=== PATIENT | male | born 1960 ===

== ENCOUNTER 2020-11-19 13:18 | Outpatient (REF) | payer MEDICAID, SELFPAY ==
--- NOTE | ~2020-11-19 | US_ITS ---
EXAMINATION: US VENOUS ULTRASOUND WITH DOPPLER LOWER EXTREMITY, LEFT CLINICAL INFORMATION: Edema and redness COMPARISON: Previous exam September 2016 TECHNIQUE: Ultrasound of the deep veins is performed from the hip to the calf with compression sonography and color and pulse Doppler assessment. Spectral analysis with color-flow imaging is performed. FINDINGS: There is normal venous compression and respiratory variation and augmented flow. The visualized common femoral vein, superficial femoral vein, profunda femoral vein, popliteal vein, and the trifurcation region shows no evidence of deep venous thrombosis. There is no significant popliteal fossa cyst. US/US venous duplex LE LT IMPRESSION: No DVT demonstrated in the left lower extremity.
== END 2020-11-19 13:19 | disposition home or self-care (01) ==
LOC: HO.US 13:18
PROVIDERS: PCP Family Medicine; Visit Provider Emergency Medicine
DX: R60.0 Localized edema (principal)
CPT/HCPCS: 93971

== ENCOUNTER 2021-04-23 10:55 | Outpatient (REF) | payer MEDICAID, SELFPAY ==
--- NOTE | ~2021-04-23 | US_ITS ---
EXAMINATION: US VENOUS ULTRASOUND WITH DOPPLER LOWER EXTREMITY, RIGHT CLINICAL INFORMATION: Right leg pain. COMPARISON: None TECHNIQUE: Ultrasound of the deep veins is performed from the hip to the calf with compression sonography and color and pulse Doppler assessment. Spectral analysis with color-flow imaging is performed. FINDINGS: There is normal venous compression and respiratory variation and augmented flow. The visualized common femoral vein, superficial femoral vein, profunda femoral vein, popliteal vein, and the posterior tibial vein shows no evidence of deep venous thrombosis. The peroneal vein is not visualized. There is no significant popliteal fossa cyst. US/US venous duplex LE RT IMPRESSION: No DVT demonstrated in the right lower extremity. The peroneal vein in the calf is not visualized.
== END 2021-04-23 10:56 | disposition home or self-care (01) ==
LOC: HO.US 10:55
PROVIDERS: Visit Provider Internal Medicine
DX: M79.604 Pain in right leg (principal); M79.89 Other specified soft tissue disorders
CPT/HCPCS: 93971

== ENCOUNTER 2022-07-29 15:32 | Emergency (ER) | payer MEDICAID, SELFPAY ==
[2022-07-29 15:48] VITALS: BP 101/50; PULSE 88; RESP 20; TEMP 36.7; O2SAT 95; BMI 35.7
[2022-07-29 16:08] LABS: MANUAL DIFF FLAG NO
[2022-07-29 16:12] LABS: Basophils Percent Auto 0.6 % (0-2); Eosinophils Absolute Auto 0.2 X10*3/uL (0.0-0.4); Eosinophils Percent Auto 2.4 % (0-4); Hematocrit 33.9 % (42.0-52.0); Hemoglobin 10.6 g/dl (14.0-18.0); Imm Gran Abs Auto 0.01 X10*3/uL (0.00-0.03); Imm Gran Pct Auto 0.1 % (0.0-0.4); Lymphocytes Absolute Auto 1.8 X10*3/uL (1.2-4.9); Lymphocytes Percent Auto 25.5 % (20-40); Mean Corpuscular HGB Conc 31.3 g/dl (31.0-36.0); Mean Corpuscular Hemoglobin 26.5 pg (27.0-33.0); Mean Corpuscular Volume 84.8 fL (80.0-98.0); Mean Platelet Volume 8.8 fL (9.4-12.4); Monocytes Absolute Auto 0.7 X10*3/uL (0.1-1.2); Monocytes Percent Auto 9.3 % (2-11); Neutrophils Absolute Auto 4.3 x10*3/uL (2.0-8.3); Neutrophils Percent Auto 62.1 % (45-73); Platelet Count 238 X10*3/uL (160-400); Red Cell Distribution Width 14.5 % (11.0-16.0)
[2022-07-29 16:25] LABS: Anion Gap 10 (12-20); Blood Urea Nitrogen 15 mg/dL (9-16); Calcium 9.2 mg/dL (8.4-10.2); Chloride 105 mmol/L (96-108); Creatinine Clr Calc Pharmacy 105.1; Estimated Glomerular Filt Rate > 60; Glucose Random 125 mg/dL (60-115); Potassium 3.7 mmol/L (3.3-5.1); Sodium 142 mmol/L (135-145)
[2022-07-29 16:29] LABS: Carbon Dioxide 31 mmol/L (22-29)
--- OUTSIDE RECORDS SUMMARY | 2022-07-29 21:11 | XMS_ITS | Continuity of Care Document ---
:1960 Demographics Address [address] [place] [address] Preferred Language es Marital Status Taoism Affiliation Buddhist Race Unknown Ethnic Group or
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
[2022-07-29] MEDS: traMADoL HCL 50 MG TABLET PO (22:16)
--- NOTE | 2022-07-29 22:22 | ED.EXTPRO ---
HPI - Extremity Problem General Chief complaint: Extremity Problem Stated complaint: left hip pain and foot swelling Time Seen by Provider: 07/29/22 21:19 Source: patient Mode of arrival: ambulatory Limitations: no limitations History of Present Illness HPI Narrative: Patient complaining of bilateral hip pain back pain after fall couple of months ago does have severe arthritis use crutches asking for pain medication no shortness of breath no chest pain Related Data Previous Rx's Medication Instructions Recorded tramadol 50 mg tablet 50 mg PO Q6H PRN pain #20 tabs 07/29/22 Allergies Allergy/AdvReac Type Severity Reaction Status Date / Time No Known Allergies Allergy Mild NA Unverified 04/24/20 16:13 Review of Systems Review of Systems: Yes all other systems are reviewed and are negative [facility] Social History Social History Advance Directives: No Advance Directives Information Provided: Yes Physical Exam Vital Signs: Vital Signs: Last Vital Signs Temp 98.0 F 07/29/22 15:48 Pulse 88 07/29/22 15:48 Resp 20 07/29/22 15:48 BP 101/50 L 07/29/22 15:48 Pulse Ox 95 07/29/22 15:48 O2 Del Method 07/29/22 15:48 BMI result Body Mass Index 35.7 Appearance: Alert. Oriented X3. No acute distress. Eyes: PERRLA, No Nystagmus ENT: Pharynx normal. Oral Mucosa moist Neck: Normal inspection. Neck supple. CVS: Normal heart rate and rhythm. Pulses normal. Respiratory: No respiratory distress. Equal air entry bilateral, no wheezing/rales/rhonchi Abdomen: Soft and nontender. Bowel sounds are present, no mass palpable, no CVA tenderness Skin: Skin warm and dry. Normal skin color. Normal skin turgor. Extremities: No lower extremity edema. No calf tenderness patient able to ambulate with crutches back: Diffuse lower spine tenderness Neuro: Oriented X 3. No motor deficit. No sensory deficit.No cerebellar signs , cranial nerves II-XII intact Medications Administered Discontinued Medications Generic Name Dose Route Start Last Admin Trade Name Freq PRN Reason Stop Dose Admin Tramadol HCl 50 mg 07/29/22 21:51 07/29/22 22:16 Tramadol Hcl 50 Mg Tablet PO 07/29/22 21:52 50 mg ONCE ONE Administration Medical Decision Making Medical Decision Making [facility] Narrative: Patient with severe arthritis chronic pain x-ray shows bone to bone bilateral hips will give him tramadol advised to follow with PCP Lab Data Result Diagrams: 07/29/22 16:03 07/29/22 16:03 Labs: Lab Results 07/29/22 07/29/22 Range/Units 16:03 16:03 WBC 7.0 (4.8-10.8) X10*3/uL RBC 4.00 L (4.60-5.80) X10*6/uL Hgb 10.6 L (14.0-18.0) g/dl Hct 33.9 L (42.0-52.0) % MCV 84.8 (80.0-98.0) fL MCH 26.5 L (27.0-33.0) pg MCHC 31.3 (31.0-36.0) g/dl RDW 14.5 (11.0-16.0) % Plt Count 238 (160-400) X10*3/uL MPV 8.8 L (9.4-12.4) fL Immature Gran % (Auto) 0.1 (0.0-0.4) % Neut % (Auto) 62.1 (45-73) % Lymph % (Auto) 25.5 (20-40) % Davis % (Auto) 9.3 (2-11) % Eos % (Auto) 2.4 (0-4) % Baso % (Auto) 0.6 (0-2) % Lymph # (Auto) 1.8 (1.2-4.9) X10*3/uL Davis # (Auto) 0.7 (0.1-1.2) X10*3/uL Eos # (Auto) 0.2 (0.0-0.4) X10*3/uL Baso # (Auto) 0.0 (0.0-0.2) X10*3/uL Abs Immat Gran (auto) 0.01 (0.00-0.03) X10*3/uL Absolute Neuts (auto) 4.3 (2.0-8.3) x10*3/uL Absolute Nucleated RBC 0.000 (0.0-0.012) X10*3/uL Nucleated RBC % (auto) 0.0 (0.0-0.2) /100WBC Sodium 142 (135-145) mmol/L Potassium 3.7 (3.3-5.1) mmol/L Chloride 105 (96-108) mmol/L Carbon Dioxide 31 H (22-29) mmol/L Anion Gap 10 L (12-20) BUN 15 (9-16) mg/dL Creatinine 0.72 (0.5-1.4) mg/dL Estim Creat Clear Calc 105.1 Estimated GFR > 60 Random Glucose 125 H (60-115) mg/dL Calcium 9.2 (8.4-10.2) mg/dL Discharge Plan Discharge Clinical Impression: Arthritis of hip Patient Disposition: Home, Self-Care Instructions: Osteoarthritis (ED) Additional Instructions: Take pain medication as prescribed Follow-up with your orthopedic/PCP Prescriptions: New tramadol 50 mg tablet 50 mg PO Q6H PRN (Reason: pain) Qty: 20 0RF
== END 2022-07-29 22:53 | disposition home or self-care (01) ==
PROVIDERS: Emergency Provider Internal Medicine
DX: M16.12 Unilateral primary osteoarthritis, left hip (principal); M25.552 Pain in left hip
CPT/HCPCS: 36415; 73502; 80048; 85025; 99283

== ENCOUNTER 2022-12-21 15:04 | Outpatient (REF) | payer MEDICAID, SELFPAY ==
--- NOTE | ~2022-12-21 | XR_ITS ---
EXAMINATION: XR LUMBOSACRAL SPINE CLINICAL INFORMATION: Back pain. Fall approximately 2 weeks ago. COMPARISON: Pelvis and left hip radiographs 07/29/2022. TECHNIQUE: Three views of the lumbosacral spine. FINDINGS: There is question of transitional vertebrae at L5. The vertebral bodies are within normal height and there is no focal vertebral compression or destructive process. There are multilevel degenerative disc changes lower thoracic and lumbar spine. There is disc narrowing at multiple levels with endplate sclerosis and vertebral spurring. There is no visible destructive process or paraspinal soft tissue swelling. A grade 1-2 spondylolisthesis is present at L5-S1. The SI joints and visualized sacrum are unremarkable. XR/XR lumbar spine 2-3V IMPRESSION: -Grade 1-2 spondylolisthesis L5-S1. -Multilevel degenerative disc changes lower thoracic and lumbar spine. -No focal lumbar vertebral compression or destructive process. -Question transitional vertebrae at L5 with partial sacralization versus projectional from the spondylolisthesis.
== END 2022-12-21 15:05 | disposition home or self-care (01) ==
LOC: HO.HHCX 15:04
PROVIDERS: Visit Provider Family Medicine
DX: M54.50 Low back pain, unspecified (principal)
CPT/HCPCS: 72100

== ENCOUNTER 2023-01-10 13:08 | Emergency (ER) | payer MEDICAID, SELFPAY ==
--- NOTE | ~2023-01-10 | US_ITS ---
EXAMINATION: US VENOUS ULTRASOUND WITH DOPPLER LOWER EXTREMITY, LEFT CLINICAL INFORMATION: Swelling COMPARISON: 11/19/2020 TECHNIQUE: Ultrasound of the deep veins is performed from the hip to the calf with compression sonography and color and pulse Doppler assessment. Spectral analysis with color-flow imaging is performed. FINDINGS: There is normal venous compression and respiratory variation and augmented flow. The visualized common femoral vein, superficial femoral vein, profunda femoral vein, popliteal vein, and the trifurcation region shows no evidence of deep venous thrombosis. There is no significant popliteal fossa cyst. There is left groin reactive appearing lymphadenopathy with mostly fatty replaced lymph nodes measures 3.2 x 0.8 x 2.3 cm. If the patient's symptoms persist, followup ultrasound in 5 days 7 days might be of value to exclude proximal propagation from a non-visualized calf vein. US/US venous duplex LE LT IMPRESSION: No DVT demonstrated in the le left lower extremity. Left inguinal lymphadenopathy.
[2023-01-10 13:40] VITALS: BP 135/76; PULSE 71; RESP 16; TEMP 36; O2SAT 97; BMI 35.1
--- NOTE | 2023-01-10 13:59 | ED.EXTPRO ---
HPI - Extremity Problem General Chief complaint: Extremity Problem Stated complaint: l leg redness Related Data Previous Rx's Medication Instructions Recorded tramadol 50 mg tablet 50 mg PO Q6H PRN pain #20 tabs 07/29/22 Allergies Allergy/AdvReac Type Severity Reaction Status Date / Time No Known Allergies Allergy Mild NA Unverified 04/24/20 16:13 Physical Exam Vital Signs: Vital Signs: Last Vital Signs Temp 96.8 F 01/10/23 13:40 Pulse 71 01/10/23 13:40 Resp 16 01/10/23 13:40 BP 135/76 01/10/23 13:40 Pulse Ox 97 01/10/23 13:40 O2 Del Method Aerosol Mask 01/10/23 13:40 BMI result Body Mass Index 35.1 Course Course Course Narrative: Patient complains of left lower extremity pain and swelling, no shortness of breath no chest pain Ultrasound ordered, labs ordered This is rapid exam in triage, full history exam evaluation and dispo will be done in the department Discharge Plan Discharge Prescriptions: No Action tramadol 50 mg tablet 50 mg PO Q6H PRN (Reason: pain) Qty: 20 0RF
[2023-01-10 16:20] VITALS: BP 140/73; PULSE 72; RESP 16; TEMP 36.9; O2SAT 98
--- NOTE | 2023-01-10 16:21 | MHC.EDTECH ---
PT BLOOD DRAWN AND SENT TO LAB ,VITALS SIGN TAKEN ,PT HAS NO DISTRESS AT THIS TIME .
[2023-01-10 16:23] LABS: MANUAL DIFF FLAG NO
[2023-01-10 16:25] LABS: Basophils Absolute Auto 0.1 X10*3/uL (0.0-0.2); Basophils Percent Auto 0.6 % (0-2); Eosinophils Absolute Auto 0.2 X10*3/uL (0.0-0.4); Eosinophils Percent Auto 1.9 % (0-4); Hematocrit 34.9 % (42.0-52.0); Hemoglobin 10.9 g/dl (14.0-18.0); Imm Gran Abs Auto 0.05 X10*3/uL (0.00-0.03); Imm Gran Pct Auto 0.6 % (0.0-0.4); Lymphocytes Absolute Auto 2.2 X10*3/uL (1.2-4.9); Lymphocytes Percent Auto 24.2 % (20-40); Mean Corpuscular HGB Conc 31.2 g/dl (31.0-36.0); Mean Corpuscular Volume 83.1 fL (80.0-98.0); Mean Platelet Volume 8.9 fL (9.4-12.4); Monocytes Absolute Auto 0.8 X10*3/uL (0.1-1.2); Neutrophils Absolute Auto 5.7 x10*3/uL (2.0-8.3); Neutrophils Percent Auto 63.7 % (45-73); Platelet Count 234 X10*3/uL (160-400); Red Cell Distribution Width 14.5 % (11.0-16.0)
[2023-01-10 16:35] LABS: Prothrombin Time 11.4 SEC (10.0-13.1)
[2023-01-10 16:37] LABS: Anion Gap 12 (12-20); Blood Urea Nitrogen 9 mg/dL (9-16); Calcium 8.8 mg/dL (8.4-10.2); Carbon Dioxide 29 mmol/L (22-29); Chloride 104 mmol/L (96-108); Creatinine Clr Calc Pharmacy 117.3; Estimated Glomerular Filt Rate > 60; Glucose Random 89 mg/dL (60-115); Potassium 4.1 mmol/L (3.3-5.1); Sodium 141 mmol/L (135-145)
== END 2023-01-10 21:44 | disposition left against medical advice (07) ==
PROVIDERS: Physician Assistant Medical; Emergency Provider Emergency Medicine
DX: M79.605 Pain in left leg (principal); R59.1 Generalized enlarged lymph nodes
CPT/HCPCS: 36415; 80048; 85025; 85610; 93971; 99282; 99284

== ENCOUNTER 2023-03-28 13:11 | Outpatient (REF) | payer MEDICAID, SELFPAY ==
--- NOTE | ~2023-03-28 | XR_ITS ---
EXAMINATION: XR HIP, LEFT CLINICAL INFORMATION: Pain COMPARISON: Previous x-ray July 2022 TECHNIQUE: Two views of the left hip. FINDINGS: There is severe arthritis at the left hip joint with joint space narrowing with [id number], remodeling and osteophyte formation. This is similar to July 2022 exam. No fracture or dislocation. Soft tissues are unremarkable. XR/XR hip LT min 2V IMPRESSION: Severe left hip osteoarthritis.
--- NOTE | ~2023-03-28 | XR_ITS ---
EXAMINATION: XR FOOT, LEFT CLINICAL INFORMATION: Pain. COMPARISON: None available. TECHNIQUE: AP, lateral, and oblique views of the left foot. FINDINGS: There is hallux valgus deformity at the 1st MTP joint. There are flexion contractures of the toes. Osteophyte at the talonavicular joint. Question hindfoot abnormality with abnormal appearance or alignment of the talocalcaneal joint. This may be artifactual/positional. Bone alignment is otherwise normal. No fracture or dislocation. There are calcaneal spurs. XR/XR foot LT min 3V IMPRESSION: Hallux valgus deformity, flexion contractures of the toes and degenerative changes of the talonavicular joint. Question hindfoot abnormality at the talocalcaneal joint on the lateral view. This may be positional. This could be better assessed with MRI or CT if clinically indicated. Calcaneal spurs.
--- NOTE | ~2023-03-28 | XR_ITS ---
EXAMINATION: XR SHOULDER, LEFT CLINICAL INFORMATION: Pain COMPARISON: None available. TECHNIQUE: AP external rotation, Grashey, scapular Y, and axillary views of the left shoulder. FINDINGS: Severe arthritis at the glenohumeral and acromioclavicular joints with joint space narrowing and osteophyte formation. The humeral head is high with respect to the glenoid suggestive of rotator cuff disease. There may be periarticular soft tissue ossifications posteriorly. No fracture or dislocation. XR/XR shoulder LT min 2V IMPRESSION: Severe arthritis and probable rotator cuff disease.
== END 2023-03-28 13:12 | disposition home or self-care (01) ==
LOC: HO.HHCX 13:11
PROVIDERS: Visit Provider Internal Medicine
DX: M79.672 Pain in left foot (principal); M25.512 Pain in left shoulder; M25.552 Pain in left hip
CPT/HCPCS: 73030; 73502; 73630

== ENCOUNTER 2023-06-10 12:58 | Outpatient (REF) | payer MEDICAID, SELFPAY ==
--- NOTE | 2023-06-10 13:03 | EMG_ITS ---
Chief complaint: Bilateral hand numbness Seen with sagger soak Reason for referral: Evaluate for Carpal Tunnel Syndrome Referred by: Fatmata Bowens MD Procedure done: Bilateral upper extremities NCS/EMG Precautions and/or limitations: None The limb temperature was monitored continuously and remained between 32-36 degrees C during the performance of the NCS. Nerve Conduction Studies Anti Sensory Summary Table ?Stim Site NR Onset (ms) Norm Onset (ms) Peak (ms) Norm Peak (ms) O-P Amp (?V) Norm O-P Amp Site1 Site2 Delta-0 (ms) Dist (cm) Wiliam (m/s) Norm Wiliam (m/s) Left Median Anti Sensory (2nd Digit) Wrist ? 4.9 5.6 <3.6 4.3 >10 Wrist 2nd Digit 4.9 14.0 29 Right Median Anti Sensory (2nd Digit) Wrist ? 3.7 4.5 <3.6 8.8 >10 Wrist 2nd Digit 3.7 14.0 38 Right Radial Anti Sensory (Thumb) Forearm ? 1.5 2.2 <3.1 5.6 Forearm Thumb 1.5 0.0 Left Ulnar Anti Sensory (5th Digit) Wrist ? 2.6 3.4 <3.7 15.7 >15.0 Wrist 5th Digit 2.6 14.0 54 Right Ulnar Anti Sensory (5th Digit) Wrist ? 1.3 3.3 <3.7 15.2 >15.0 Wrist 5th Digit 1.3 14.0 108 Motor Summary Table ?Stim Site NR Onset (ms) Norm Onset (ms) O-P Amp (mV) Norm O-P Amp iAmp (mV) Amp (1st) (%) Site1 Site2 Delta-0 (ms) Dist (cm) Wiliam (m/s) Norm Wiliam (m/s) Left Median Motor (Abd Poll Brev) Wrist ? 6.9 <3.9 2.7 >4.5 3.5 100.0 Elbow Wrist 4.0 18.0 45 >45 Elbow ? 10.9 2.2 2.8 81.5 Right Median Motor (Abd Poll Brev) Wrist ? 5.5 <3.9 3.0 >4.5 3.8 100.0 Elbow Wrist 3.6 20.0 56 >45 Elbow ? 9.1 2.4 3.0 80.0 Left Ulnar Motor (Abd Dig Minimi) Wrist ? 3.0 <3.0 5.0 >5 7.5 100.0 B Elbow Wrist 3.6 17.0 47 >45 B Elbow ? 6.6 4.8 6.8 96.0 A Elbow B Elbow 1.0 10.0 100 >45 A Elbow ? 7.6 4.5 6.6 90.0 Right Ulnar Motor (Abd Dig Minimi) Wrist ? 3.0 <3.0 6.8 >5 8.9 100.0 B Elbow Wrist 2.8 15.0 54 >45 B Elbow ? 5.8 7.1 9.3 104.4 A Elbow B Elbow 1.3 10.0 77 >45 A Elbow ? 7.1 6.0 8.0 88.2 EMG ?Side Muscle Nerve Root Ins Act Fibs Psw Amp Dur Poly Recrt Int Pat Comment Right 1stDorInt Ulnar C8-T1 Nml Nml Nml Nml Nml 0 Nml Complete Right FlexCarRad Median C6-7 Nml Nml Nml Nml Nml 0 Nml Complete Right Biceps Musculocut C5-6 Nml Nml Nml Nml Nml 0 Nml Complete Right Triceps Radial C6-7-8 Nml Nml Nml Nml Nml 0 Nml Complete Right Deltoid Axillary C5-6 Nml Nml Nml Nml Nml 0 Nml Complete Left 1stDorInt Ulnar C8-T1 Nml Nml Nml Nml Nml 0 Nml Complete Left FlexCarRad Median C6-7 Nml Nml Nml Nml Nml 0 Nml Complete Left Biceps Musculocut C5-6 Nml Nml Nml Nml Nml 0 Nml Complete Left Triceps Radial C6-7-8 Nml Nml Nml Nml Nml 0 Nml Complete Left Deltoid Axillary C5-6 Nml Nml Nml Nml Nml 0 Nml Complete FINDINGS: Bilateral median motor nerves showed prolonged distal latency, small amplitude and normal conduction velocity. Bilateral median sensory nerves showed prolonged peak latency and small amplitude. All other nerves tested were within normal. Concentric needle EMG was performed in selected muscles of the bilateral upper extremities. Study did not reveal signs of electric abnormalities as shown in the table below. IMPRESSION: 1. This is an abnormal study. 2. There is electrodiagnostic evidence for bilateral moderate-severe median neuropathy at the wrist, consistent with carpal tunnel syndrome. 3. There is no electrodiagnostic evidence for ulnar neuropathy, brachial plexopathy, or cervical radiculopathy. Thank you for your kind referral. Kallie Dorado MD, BAUDILIO Board Certified, [place] [employer] and [employer] (ABPMR) Board Certified, [place] [employer] of Electrodiagnostic Medicine (ABEM) CODIN [id number] x2 MTDD
== END 2023-06-10 12:59 | disposition home or self-care (01) ==
LOC: HO.NEURO 12:58
PROVIDERS: PCP Internal Medicine; Visit Provider Internal Medicine
DX: R20.0 Anesthesia of skin (principal)
CPT/HCPCS: 95886; 95911

== ENCOUNTER → 2023-06-10 13:03 | Outpatient (BNV) | payer MEDICAID, SELFPAY | PROVIDERS: PCP Internal Medicine; Visit Provider Physical Medicine & Rehabilitation | DX: G56.13 Other lesions of median nerve, bilateral upper limbs (principal); G56.03 Carpal tunnel syndrome, bilateral upper limbs | CPT/HCPCS: 95886; 95911 ==

== ENCOUNTER 2024-04-13 11:32 | Outpatient (REF) | payer MEDICAID, SELFPAY ==
[2024-04-13 13:24] LABS: MANUAL DIFF FLAG NO
[2024-04-13 13:31] LABS: Basophils Percent Auto 0.7 % (0-2); Eosinophils Absolute Auto 0.1 X10*3/uL (0.0-0.4); Hematocrit 33.8 % (42.0-52.0); Hemoglobin 10.2 g/dl (14.0-18.0); Imm Gran Abs Auto 0.01 X10*3/uL (0.00-0.03); Imm Gran Pct Auto 0.2 % (0.0-0.4); Lymphocytes Absolute Auto 1.5 X10*3/uL (1.2-4.9); Lymphocytes Percent Auto 25.8 % (20-40); Mean Corpuscular HGB Conc 30.2 g/dl (31.0-36.0); Mean Corpuscular Hemoglobin 23.9 pg (27.0-33.0); Mean Corpuscular Volume 79.3 fL (80.0-98.0); Monocytes Absolute Auto 0.4 X10*3/uL (0.1-1.2); Monocytes Percent Auto 6.9 % (2-11); Neutrophils Absolute Auto 3.9 x10*3/uL (2.0-8.3); Neutrophils Percent Auto 64.4 % (45-73); Platelet Count 236 X10*3/uL (160-400); Red Blood Count 4.26 X10*6/uL (4.60-5.80); Red Cell Distribution Width 18.1 % (11.0-16.0)
[2024-04-13 14:27] LABS: Alanine Aminotransferase 8 U/L (0-40); Albumin Level 3.8 g/dL (3.5-5.0); Alkaline Phosphatase 66 U/L (39-117); Anion Gap 10 (12-20); Aspartate Amino Transferase 14 U/L (5-37); Bilirubin Total 0.2 mg/dL (0.0-1.0); Blood Urea Nitrogen 20 mg/dL (9-16); Calcium 9.2 mg/dL (8.4-10.2); Carbon Dioxide 27 mmol/L (22-29); Chloride 109 mmol/L (96-108); Cholesterol 147 mg/dL (<200); Estimated Glomerular Filt Rate > 60; Glucose Random 86 mg/dL (60-115); HDL Cholesterol 56 mg/dL (>40); LDL Cholesterol Calculated 78 mg/dL (<100); Potassium 4.2 mmol/L (3.3-5.1); Sodium 142 mmol/L (135-145); Triglycerides 67 mg/dL (<150)
[2024-04-13 14:37] LABS: Creatinine Urine 94.73 mg/dL
[2024-04-14 07:24] LABS: ~HepC Num1 0.15 S/CO (0.00-0.79); ~Hepatitis C Antibody Nonreactive (Nonreactive)
== END 2024-04-13 11:33 | disposition home or self-care (01) ==
LOC: HO.HHCL 11:32
PROVIDERS: Visit Provider General Practice
DX: D64.9 Anemia, unspecified (principal); E08.49 Diabetes mellitus due to underlying condition with other diabetic neurological complication
CPT/HCPCS: 36415; 80053; 80061; 82043; 82570; 85025; 86803

== ENCOUNTER 2024-06-18 17:17 | Outpatient (REF) | payer MEDICAID, SELFPAY | END 2024-06-18 17:18 | disposition home or self-care (01) | LOC: HO.HHCLNP 17:17 | PROVIDERS: Visit Provider Internal Medicine | DX: L03.119 Cellulitis of unspecified part of limb (principal); L02.519 Cutaneous abscess of unspecified hand | CPT/HCPCS: 87070; 87077; 87186; 87205 ==

== ENCOUNTER 2024-06-23 12:25 | Emergency (ER) | payer SELFPAY ==
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
[2024-06-23 12:42] VITALS: BP 144/62; PULSE 79; RESP 20; TEMP 37.1; O2SAT 97; BMI 30.8
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
[2024-06-23] MEDS: Ketorolac Tromethamine 30 MG/ML VIAL IM (14:28)
[2024-06-23] MEDS: Lidocaine 4 % Patch ADH..PATCH 1 PATCH TRANSDERMA (14:28)
[2024-06-23 17:04] VITALS: BP 133/61; PULSE 66; RESP 18; TEMP 36.6; O2SAT 98
[2024-06-23 17:52] VITALS: BP 133/61; PULSE 66; RESP 18; TEMP 36.6; O2SAT 98
== END 2024-06-23 17:52 | disposition home or self-care (01) ==
PROVIDERS: Emergency Provider Emergency Medicine; PCP Internal Medicine
DX: S39.012A Strain of muscle, fascia and tendon of lower back, initial encounter (principal); V43.52XA Car driver injured in collision with other type car in traffic accident, initial encounter; M16.12 Unilateral primary osteoarthritis, left hip; Y93.89 Activity, other specified; Y92.488 Other paved roadways as the place of occurrence of the external cause; Y99.9 Unspecified external cause status
CPT/HCPCS: 72100; 73030; 73502; 96372; 99284; J1885

== ENCOUNTER 2025-01-23 10:17 | Outpatient (REF) | payer OTHER, SELFPAY ==
--- OUTSIDE RECORDS SUMMARY | 2025-01-23 11:39 | XMS_ITS | Clinical Summary ---
Author Organization [employer] [facility] ity Address [address] [place] [address] Care Team Providers Care Wealth Management Director Name Role Phone Unavailable Primary Care Provider Unavailabl e Social History Tobacco Use Types Packs/Day Years Used Date Smoking Tobacco: Never Assessed Sex and Gender Information Value Date Recorded Sex Assigned at Not on file Legal Sex Male 5:36 AM EST Gender Identity Not on file Sexual Orientation Not on file Plan of Treatment Health Maintenance Due Date Last Done Comments DTaP,Tdap,and Td Vaccines (1 - Tdap) 1977 Pneumococcal Vaccine: 50+ Ye ars (1 of 1 - PCV) 2008 Zoster Vaccines (1 of 2) 2008 COVID-19 Vaccine (2023-2 5 season) 2024 Influenza Vaccine (Season Ended) 2025 RSV Immunization Adult Patie nts (1 - 1-dose 75+ series) 2033 HIB Vaccines Aged Out No longer eligi ble based on patient's age to complete this topic HPV Vaccines Aged Out No longer eligi ble based on patient's age to complete this topic Hepatitis A Vaccines Aged Out No long er eligible based on patient's age to complete this topic Hepatitis B Vaccines Aged Out No long er eligible based on patient's age to complete this topic IPV Vaccines Aged Out No longer eligi ble based on patient's age to complete this topic MMR Vaccines Aged Out No longer eligi ble based on patient's age to complete this topic Meningococcal ACWY Vaccine Aged Out N o longer eligible based on patient's age to complete this topic Meningococcal B Vaccine Aged Out No l onger eligible based on patient's age to complete this topic RSV Immunization Patients Un dexter 20 months Aged Out No longer eligible b ased on patient's age to complete this topic Varicella Vaccines Aged Out No longer eligible based on patient's age to complete this topic
[2025-01-23 12:13] LABS: Alanine Aminotransferase 7 U/L (0-40); Alkaline Phosphatase 60 U/L (39-117); Anion Gap 7 (12-20); Aspartate Amino Transferase 18 U/L (5-37); Bilirubin Total 0.3 mg/dL (0.0-1.0); Blood Urea Nitrogen 13 mg/dL (9-16); Calcium 8.9 mg/dL (8.4-10.2); Carbon Dioxide 30 mmol/L (22-29); Chloride 107 mmol/L (96-108); Estimated Glomerular Filt Rate > 60; Glucose Random 83 mg/dL (60-115); Potassium 4.2 mmol/L (3.3-5.1); Sodium 140 mmol/L (135-145)
[2025-01-23 12:18] LABS: B Type Natriuretic Peptide 73 pg/mL (<100)
== END 2025-01-23 10:18 | disposition home or self-care (01) ==
LOC: HO.HHCL 10:17
PROVIDERS: PCP General Practice; Visit Provider General Practice
DX: R60.0 Localized edema (principal)
CPT/HCPCS: 36415; 80053; 83880

== ENCOUNTER 2025-02-15 11:44 | Outpatient (REF) | payer OTHER, SELFPAY ==
--- NOTE | ~2025-02-15 | US_ITS ---
EXAMINATION: US LOWER EXTREMITY VEINS LIMITED FOLLOW UP LEFT HISTORY: worsening L leg pain and swelling, r/o DVT COMPARISON: Comparison is made with the prior examination dated 01/10/2023. TECHNIQUE: Duplex and color Doppler sonographic examination of the deep venous system of the left lower extremity was performed. FINDINGS: The common femoral, superficial femoral, and popliteal veins are patent demonstrating normal compressibility, spontaneous flow, and augmentation. There is a normal color and spectral Doppler waveform appearance of the visualized deep venous system above the knee. The posterior tibial veins are patent. The peroneal veins are not well visualized. US/US venous duplex LE LT IMPRESSION: No evidence of acute DVT in the left lower extremity. Electronically signed by: Larry Castaneda MD 02/15/2025 12:54 PM EDT
--- OUTSIDE RECORDS SUMMARY | 2025-02-15 12:13 | XMS_ITS | Encounter Summary ---
Author Organization [employer] Address [address] [place] [address] Care Team Providers Care Cloth Shearer Name Role Phone Radha Farooq MD Primary Care Provider [phone] Encounter Details Date Type Department Care Team (Late st Contact Info) Description 05/23/2023 Abstract [facility] [address] [place], [place] [phone] Radha Farooq MD [address] [place], [place] [phone] Social History Tobacco Use Types Packs/Day Years Used Date Smoking Tobacco: Never Passive Smoke Exposure: Never Smokeless Tobacco: Never Alcohol Use Standard Drinks/Week Comments Never 0 (1 standard drink = 0.6 oz pur e alcohol) Housing Stability Answer Date Recorded What is your housing situation today? I have [place] 05/23/[address] you li ve. Do you have problems with any of the following? None of the above 05/23/2023 Food Insecurity Answer Date Recorded Within the past 12 months, y ou worried that your food would run out before you got money to buy more: Never True 05/23/2023 Within the past 12 months,th e food you bought just didn't last and you didn't have enough money to get more: Never True Transportation Answer Date Recorded In the past 12 months, has l ack of transportation kept you from medical appts, meetings, work or from getting things needed for daily living? Yes, it has kept me from medical appointments or getting medications. 05/17/2023 Utilities Answer Date Recorded In the past 12 months, has t he electric, gas, oil or water company threatened to shut off services in your home? No 05/23/2023 Depression Answer Date Recorded Patient Health Questionnaire-2 Score 2 04/29/2023 Sex and Gender Information Value Date Recorded Sex Assigned at Male 06/07/2022 10:15 AM EDT Legal Sex Male 10:15 AM EDT Gender Identity Male 06/07/2022 10:15 AM EDT Sexual Orientation Straight 06/07/2022 10 :15 AM EDT documented as of this encounter Plan of Treatment Not on file documented as of this encounter Visit Diagnoses Not on filedocumented in this encounter Care Teams Cloth Shearer Relationship Specialty Start Date End Date Radha Farooq MD [address] [place] [id number] PCP - General Family Medicine 03/31/22 documented as of this encounter
--- OUTSIDE RECORDS SUMMARY | 2025-02-15 12:13 | XMS_ITS | Clinical Summary ---
Author Organization [facility] ity Address [address] [place] [address] Care Team Providers Care Entry Level Electrical Engineer Name Role Phone Unavailable Primary Care Provider [...] Vaccines (1 of 2) 2008 COVID-19 Vaccine ( - 2023-2 5 season) 2024 Influenza Vaccine (#1) 2025 RSV Immunization Adult Patie nts (1 [...]
== END 2025-02-15 11:45 | disposition home or self-care (01) ==
LOC: HO.US 11:44
PROVIDERS: PCP Family Medicine; Visit Provider Family Medicine
DX: M79.605 Pain in left leg (principal); M79.89 Other specified soft tissue disorders
CPT/HCPCS: 93971

== ENCOUNTER → 2025-02-15 11:46 | Outpatient (BNV) | payer OTHER, SELFPAY | PROVIDERS: PCP Family Medicine; Visit Provider Radiology Diagnostic Radiology | DX: M79.605 Pain in left leg (principal) | CPT/HCPCS: 93971 ==

== ENCOUNTER 2025-03-28 11:08 | Outpatient (AMB) | payer OTHER, SELFPAY ==
--- NOTE | 2025-03-28 11:13 | A.OFFVIS_ITS ---
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 Patient states he has had swelling on and off for about a year. Patient uses crutches to ambulate , states he has screws in his right knee after surgery in 1977. No new injuries since. 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 Complaints include pain over varicosities, swelling of lower extremities, cramping, fatigue, and heaviness of the lower extremities. It has been affecting there daily activities including walking to the point he is requiring crutches. It is noted more so in left leg. Patient denies any previous venous surgery or injections. Patient denies any history of DVT/ PE. Patient denies any history of phlebitis. Trial of compression includes - [id number] They now present for vascular evaluation regarding their varicose veins. Review of Systems Const Reports as per HPI ENT Reports no additional complaints Card Denies chest pain, Denies chest pain at rest and Denies chest pain with activity Resp Denies chest congestion and Denies cough GI Reports no additional complaints Musc Details: pain over varicosities, aching of lower extremities, swelling, cramping, heaviness and tiredness, itching Denies abnormal gait Skin/Breast Reports pruritus and Denies wounds Neuro Reports no additional complaints and Denies abnormal gait Psych Denies no additional complaints Physical Exam Const General: cooperative, healthy appearing and comfortable Orientation/consciousness: oriented to person, oriented to place and oriented to time Neck Carotids: no bruits Chest Chest palpation & inspection: normal inspection of the chest and normal palpation of entire chest wall Resp Effort & Inspection: normal respiratory effort and able to speak in complete sentences Cardio Rate: regular rate Heart sounds: S1 normal heart sound present and S2 normal heart sound present Peripheral pulses: Peripheral pulses 2+ throughout GI Inspection: Yes normal to inspection Skin Other: +2 edema, large rope-like varicosities greater than 4 mm CEAP Classification C4 - skin color changes Ep - Etiology Primary As - superficial veins P - reflux General skin exam: dry skin Neuro General: oriented to person, oriented to place and oriented to time Extrem Other: It appears that he has almost a Charcot foot deformity Right lower extremity: full ROM, normal capillary refill and edema Left lower extremity: full ROM, normal capillary refill and edema Psych Mental Status: mental status grossly normal Assessment & Plan Assessment & Plan (1) Varicose veins of left lower extremity with inflammation: Code(s): I83.12 - Varicose veins of left lower extremity with inflammation Category: Medical Plan: In short, the patient has evidence of venous insufficiency. I have discussed the pathophysiology with the patient. In addition I have provided informational material regarding venous disease to the patient. We have discussed conservative measures including compression, elevation, and exercise. I have also provided a handout regarding appropriate use of compression stockings and where to purchase good compression stockings as well. I have taken the liberty of ordering venous insufficiency testing with the patient. They will follow up with me after testing. The patient had an opportunity to ask questions regarding the treatment plan. All questions were answered. Imaging studies, laboratory studies and physical exam results were discussed and reviewed in detail. No major barriers to understanding were identified. The patient expressed understanding and agreement with the above treatment plan. The patient is aware they should contact our office by phone for worsening of the current condition or the appearance of new symptoms. Thank you for allowing me to participate in the vascular care of this patient. If you have any questions or concerns regarding the treatment for the above condition please do not hesitate to contact me. The office telephone contact is [phone]. This note is constructed using voice recognition software. While every effort has been made to ensure accuracy, inserter promotional item errors may have been included. Thank you for allowing me to participate in the care of your patient. Yours sincerely, Mason Whaley MD, FACS, R.P.V.I. Orders: Orders US venous duplex LE BI 1 Week I83.12 - Varicose veins of left lower extremity with inflammation Medications: Discontinued tramadol Discontinued Reason: Patient no longer taking 50 mg PO Q6H PRN 20 tabs 0RF pain Coding Level of Care Code New Pt Level 4 (34233) Diagnoses Varicose veins of left lower extremity with inflammation I83.12
--- OUTSIDE RECORDS SUMMARY | 2025-03-28 12:49 | XMS_ITS | Encounter Summary ---
Author Organization [employer] Address [address] [place] [address] Care Team Providers Care Four Slide Machine Setter Name Role Phone Radha Farooq MD Primary Care Provider [phone] Encounter Details Date Type Department Care Team (Late st Contact Info) Description 05/23/2023 Abstract [facility] [address] [place], [place] [phone] Radha Farooq MD [address] [place], [place] [phone] Social History Tobacco Use Types Packs/Day Years [...] on filedocumented in this encounter Care Teams Four Slide Machine Setter Relationship Specialty Start Date End Date Radha Farooq MD [address] [place] [id number] PCP - General Family Medicine 03/31/22 documented as of this encounter
--- OUTSIDE RECORDS SUMMARY | 2025-03-28 12:49 | XMS_ITS | Clinical Summary ---
Author Organization [facility] [employer] [facility] ity Address [address] [place] [address] Care Team Providers Care Bag Builder Name Role Phone Unavailable Primary Care Provider [...] 2008 COVID-19 Vaccine (2023-2 5 season) 2024 Depression Screening 08/08/2024 Influenza Vaccine (#1) 2025 RSV Immunization Adult [...]
== END 2025-03-28 11:36 | disposition home or self-care (01) ==
LOC: HO.HVS 11:08
PROVIDERS: PCP Family Medicine; Visit Provider Surgery Vascular Surgery
DX: I83.12 Varicose veins of left lower extremity with inflammation (principal)
CPT/HCPCS: 99204

== ENCOUNTER → 2025-03-28 11:08 | Outpatient (BNVA) | payer OTHER, SELFPAY | PROVIDERS: PCP Family Medicine; Visit Provider Surgery Vascular Surgery | DX: I83.12 Varicose veins of left lower extremity with inflammation (principal); M15.9 Polyosteoarthritis, unspecified | CPT/HCPCS: 99202 ==